=== PATIENT | female | born 1995 | race Caucasian/White ===

== ENCOUNTER 2016-07-04 03:26 | Emergency (ER) | payer OTHER ==
[~2016-07-04] VITALS: Ht 157.5 cm; Wt 68.0 kg
[2016-07-04 03:38] VITALS: TEMP 36.3; Ht 157.5 cm; Wt 68.0 kg
--- NOTE | 2016-07-04 03:54 | EMERGENCY ROOM VISIT NOTE ---
History Report prepared by Luna: Grant Mathew Under the Supervision of: Dr. Fernando Schulte M.D. 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 The patient is from [facility]. She came here for her friend's birthday. Throughout the evening, she and her friends were drinking alcohol and got . The patient then became lost. She was located around the [facility]. She denies any trauma, pain, and vomiting. She rates her intoxication level a 4/ 10 in severity. She has no complaints. She denies any medical problems. Her friends state that she seems okay. Source of History: patient, roommate, EMS Onset: SAFETY AIDE Position: other (global) Symptom Intensity: 4/10 Quality: other (alcohol intoxication) Timing: constant Associated Symptoms: No vomiting Note: She denies any trauma or pain. Review of Systems See HPI for pertinent positives & negatives. A total of 10 systems reviewed and were otherwise negative. Past Medical & Surgical No medical problems Family History Patient reports no known family medical history. Social History Smoking Status: Never Smoker Smokeless Tobacco Use: No Alcohol Use: occasionally Drug Use: none Marital Status: single Occupation Status: student Physical Exam Vital Signs Date Time Temp Pulse Resp B/P Pulse Ox O2 Delivery O2 Flow Rate FiO2 07/04/16 03:59 99 18 99/54 99 07/04/16 03:39 90 07/04/16 03:38 36.3 92 18 119/77 97 Room Air Physical Exam GENERAL: Patient is in no acute distress. HEENT: No acute trauma, normocephalic atraumatic, mucous membranes moist, no nasal congestion, no scleral icterus. Pupils equal and reactive to light. No obvious head trauma. NECK: No stridor, no adenopathy, no meningismus, trachea is midline. LUNGS: Clear to auscultation bilaterally, no wheeze, no rhonchi, breath sounds equal. HEART: Without murmurs gallops or rubs, regular rate and rhythm. ABDOMEN: Soft, nontender, bowel sounds positive, no hernias, no peritonitis. EXTREMITIES: No cyanosis or edema, full range of motion of all the joints without pain or difficulty, no signs for acute trauma. NEUROLOGIC: Mildly intoxicated with alcohol, no acute motor or sensory deficits , no focal weakness. SKIN: No rash, no jaundice, no diaphoresis. Medical Decision & Procedures ED Course 0343: The patient was evaluated in room A9. A complete history and physical exam was performed. 0353: Reevaluated the patient. Discussed results and discharge instructions: She verbalized understanding and agreement. The patient is ready for discharge. Medical Decision Differential diagnosis includes but is not limited to head trauma, drug and alcohol abuse, vomiting, and dehydration. The patient presents with an alcohol overdose. She is visiting the [place] area and became lost downtown. She was tearful and upset and admitted to using alcohol. She was brought for evaluation. The patient is mildly intoxicated with alcohol. There has been no vomiting, she does not report trauma and there is no trauma by exam. She has some sober friends with her at the bedside. I do think the patient is stable to be discharged in the care of her friends. No testing required. She was told to avoid alcohol in excess. Impression Primary Impression: Alcohol use with intoxication Scribe Attestation The scribe's documentation has been prepared under my direction and personally reviewed by me in its entirety. I confirm that the note above accurately reflects all work, treatment, procedures, and medical decision making performed by me. Departure Information Dispostion Home / Self-Care Referrals No Doctor, Assigned Forms HOME CARE DOCUMENTATION FORM, IMPORTANT VISIT INFORMATION Patient Instructions My [facility] Additional Instructions return with worsening symptoms or worsening concerns stay with your friends tonight stay well hydrated no more alcohol this evening
[2016-07-04 03:59] VITALS: BP 99/54; PULSE 99; O2SAT 99
== END 2016-07-04 04:00 | disposition home or self-care (01) ==
LOC: C.EDA 03:29
DX: F10.129 Alcohol abuse with intoxication, unspecified (principal); Y90.9 Presence of alcohol in blood, level not specified